=== PATIENT | female | born 1960 | race Caucasian/White ===

== ENCOUNTER 2022-08-01 11:00 | Outpatient (RCR) | payer BC, SELFPAY | END 2022-12-03 12:32 | disposition home or self-care (01) | PROVIDERS: PCP Obstetrics & Gynecology; Visit Provider Obstetrics & Gynecology | DX: R10.2 Pelvic and perineal pain (principal); Z51.89 Encounter for other specified aftercare | CPT/HCPCS: 97110; 97140 ==